=== PATIENT | male | born 2000 | race Caucasian/White ===

== ENCOUNTER 2022-03-19 00:57 | Emergency (ER) | payer BC, SELFPAY ==
[2022-03-19 01:02] VITALS: BP 127/81; PULSE 96; RESP 16; TEMP 36.6; O2SAT 100; BMI 29.6
[2022-03-19 01:20] VITALS: O2SAT 100
[2022-03-19] MEDS: ONDANSETRON 2 MG/ML inj 4 MG IVP (01:20)
[2022-03-19] MEDS: 0.9 % SODIUM CHLORIDE 1000 ml 1,000 ML IV (01:20)
[2022-03-19 01:28] LABS: Basophils Absolute Auto 0.03 K/uL (0.00-0.30); Basophils Percent Auto 0.3 % (0.0-3.0); Eosinophils Absolute Auto 0.19 K/uL (0.00-0.50); Eosinophils Percent Auto 1.9 % (0.0-7.0); Hematocrit 46.7 % (37.0-53.0); Hemoglobin* 15.9 gm/dL (13.5-17.5); Immature Granulocytes Abs Auto 0.01 K/uL (0.00-0.30); Immature Granulocytes Pct Auto 0.1 %; Lymphocytes Absolute Auto 3.32 K/uL (0.90-2.90); Mean Corpuscular HGB Conc 34 gm/dL (32-36); Mean Corpuscular Hemoglobin 30 pg (26-34); Mean Corpuscular Volume 88 fL (80-100); Monocytes Percent Auto 7.3 % (0.0-11.0); Neutrophils Percent Auto 56.4 % (42.0-72.0); Platelet Count* 282 K/uL (140-440); RDW Coefficient of Variation % 12.5 % (11.5-15.5); Red Blood Count 5.34 m/uL (4.30-5.90); White Blood Count* 9.76 K/uL (4.50-11.00)
[2022-03-19 01:32] LABS: Slide Review Reflex No
[2022-03-19 01:40] LABS: Chloride* 107 mmol/L (96-114)
[2022-03-19 01:41] LABS: Albumin* 4.8 g/dL (3.3-5.0); Sodium* 141 mmol/L (135-149)
[2022-03-19 01:42] LABS: Potassium* 3.4 mmol/L (3.6-5.1)
[2022-03-19 01:44] LABS: Alkaline Phosphatase* 112 U/L (40-150); Aspartate Amino Transferase* 21 U/L (12-35); Bilirubin Direct* 0.1 mg/dL (0.0-0.5); Bilirubin Total* 0.6 mg/dL (0.1-1.5); Blood Urea Nitrogen* 21 mg/dL (5-24); Calcium* 9.5 mg/dL (8.4-10.6); Carbon Dioxide* 20 mmol/L (20-32); Creatinine* 1.1 mg/dL (0.5-1.5); Est. Creatinine Clearance* 103.64; Estimated Glomerular Filt Rate 99 ml/min; Glucose* 152 mg/dL (60-115); Lipase* 103 U/L (23-300); Total Protein* 8.1 g/dL (6.0-8.3)
[2022-03-19 01:45] LABS: Alanine Aminotransferase* 21 U/L (4-50)
--- NOTE | 2022-03-19 01:49 | ED_ITS ---
HPI - General Adult General Time Seen by Provider: 01:49 Date Seen: 03/19/22 Chief complaint: Abdominal Pain Stated complaint: Abdominal pain Time Seen by Provider: 03/19/22 01:03 Source: patient, RN notes reviewed and old records reviewed Mode of arrival: ambulatory Limitations: no limitations History of Present Illness HPI narrative: 21-year-old male who presents today with ?severe abdominal pain? and nausea vomiting. Patient woke up about 12:30 a.m. with severe generalized abdominal pain and nausea. Threw up a little bit at home with no improvement. Came to the emergency department and on arrival here vomited more, says he feels better and pain is resolved now. No diarrhea. No cough, runny nose, chest pain, breathing difficulty, urinary symptoms. No known ill contacts. Denies fever or chills. Prior appendectomy. Denies smoking alcohol use, patient is a student at [employer]. Related Data Home Medications Medication Instructions Recorded Confirmed No Known Home Medications 03/19/22 03/19/22 Allergies Allergy/AdvReac Type Severity Reaction Status Date / Time No Known Drug Allergies Allergy Verified 03/19/22 01:05 [facility] Medical History (Updated 03/19/22 @ 02:09 by Ruel Chandler MD) No significant past medical history Surgical History History of appendectomy Social History Smoking Status: Never smoker Do you use any of these nicotine containing products: None How often do you have a drink containing alcohol: never AUDIT-C Alcohol total score: 0 Non-prescribed substance use: denies use Exam Narrative: Exam Narrative: General: Well-developed and well-nourished, no acute distress Head: Atraumatic and normocephalic Eyes: Pupils are equal reactive, extraocular motions intact, conjunctiva clear ENT: External nose and ears are normal, posterior pharynx without erythema or exudate Neck: No midline cervical tenderness, full spontaneous range of motion the neck, trachea midline, no adenopathy Heart: Regular rate and rhythm no murmurs or thrills Lungs: Clear to auscultation bilaterally without wheezes or crackles Abdomen: Soft, nontender, nondistended with active bowel sounds Musculoskeletal: No tenderness, deformity, or edema Neurologic: Awake, alert, and oriented x3, no gross focal neurologic deficits, cranial nerves intact as tested Psych: Mood and affect are appropriate Skin: No rashes Const: Vital Signs, click to edit/add: Vital Signs - 24 hr 03/19/22 01:02 03/19/22 01:20 03/19/22 02:01 Temperature 97.9 F 98.2 F Pulse Rate [Left P ulse Oximeter] 96 89 Respiratory Rate 16 16 Blood Pressure [Le ft Upper Arm] 127/81 122/78 Pulse Oximetry 100 100 100 Oxygen Delivery Me thod Room Air Room Air Course Course Hospital Course: Patient presents today with abdominal pain, nausea, vomiting. Prior appendectomy. On exam now, patient is pain-free after having emesis in the emergency department. No abdominal tenderness. Labs are ordered, in absence of abdominal tenderness intra-abdominal pathology including acute cholecystitis, pancreatitis, bowel obstruction unlikely. If labs are reassuring, patient be discharged with symptomatic treatment. Symptoms and presentation today are most consistent with enteritis or gastroenteritis, food-borne illness is also possible. Reevaluation(s) Reevaluation #1: Labs independently interpreted by me demonstrate normal white blood cell count with reassuring hemoglobin. Basic panel is reassuring other than mild hyperglycemia, lipase is in normal range and hepatic function panel is normal. Patient will be given Pepcid for possible residual gastritis and plan to discharge. Time: 01:51 Vital Signs Vital signs: Initial Vital Signs Temperature 97.9 F 03/19/22 01:02 Temperature Source Temporal Artery Scan 03/19/22 01:02 Pulse Rate 96 03/19/22 01:02 Pulse Rhythm 03/19/22 01:02 Respiratory Rate 16 03/19/22 01:02 Blood Pressure 127/81 03/19/22 01:02 Blood Pressure Mean 96 03/19/22 01:02 Blood Pressure Position Sitting 03/19/22 01:02 Pulse Oximetry 100 03/19/22 01:02 Oxygen Delivery Method 03/19/22 01:02 Vital Signs Temperature 97.9 F 03/19/22 01:02 Pulse Rate 96 03/19/22 01:02 Respiratory Rate 16 03/19/22 01:02 Blood Pressure 127/81 03/19/22 01:02 Pulse Oximetry 100 03/19/22 01:02 Oxygen Delivery Method 03/19/22 01:02 Temperature 98.2 F 03/19/22 02:01 Pulse Rate 89 03/19/22 02:01 Respiratory Rate 16 03/19/22 02:01 Blood Pressure 122/78 03/19/22 02:01 Pulse Oximetry 100 03/19/22 02:01 Oxygen Delivery Method 03/19/22 02:01 Medical Decision Making Lab Data Labs: Lab Results 03/19/22 03/19/22 Range/Units 01:20 01:20 WBC 9.76 (4.50-11.00) K/uL RBC 5.34 (4.30-5.90) m/uL Hgb 15.9 (13.5-17.5) gm/dL Hct 46.7 (37.0-53.0) % MCV 88 (80-100) fL MCH 30 (26-34) pg MCHC 34 (32-36) gm/dL RDW Coeff of Shayla 12.5 (11.5-15.5) % Plt Count 282 (140-440) K/uL Neut % (Auto) 56.4 (42.0-72.0) % Lymph % (Auto) 34.0 (20-44) % [place] % (Auto) 7.3 (0.0-11.0) % Eos % (Auto) 1.9 (0.0-7.0) % Baso % (Auto) 0.3 (0.0-3.0) % Neut # (Auto) 5.50 (1.7-7.0) K/uL Lymph # (Auto) 3.32 H (0.90-2.90) K/uL [place] # (Auto) 0.70 (0.00-0.90) K/UL Eos # (Auto) 0.19 (0.00-0.50) K/uL Baso # (Auto) 0.03 (0.00-0.30) K/uL Sodium 141 (135-149) mmol/L Potassium 3.4 L (3.6-5.1) mmol/L Chloride 107 (96-114) mmol/L Carbon Dioxide 20 (20-32) mmol/L BUN 21 (5-24) mg/dL Creatinine 1.1 (0.5-1.5) mg/dL Estimated Creat Clear 103.64 Estimated GFR 99 ml/min Glucose 152 H (60-115) mg/dL Calcium 9.5 (8.4-10.6) mg/dL Total Bilirubin 0.6 (0.1-1.5) mg/dL Direct Bilirubin 0.1 (0.0-0.5) mg/dL AST 21 (12-35) U/L ALT 21 (4-50) U/L Alkaline Phosphatase 112 (40-150) U/L Total Protein 8.1 (6.0-8.3) g/dL Albumin 4.8 (3.3-5.0) g/dL Lipase 103 (23-300) U/L Discharge Plan Discharge Clinical Impression: Gastroenteritis Patient Disposition: Home, Self-Care Condition: Stable Instructions: Acute Nausea and Vomiting (ED) Additional Instructions: Liquid diet for 24 hours. Avoid carbonated beverages, caffeine, alcohol. Symptoms should improve within 48 hours. If not feeling better in 2 days, follow-up with primary care. Activity Level: No Restrictions Discharge Diet: Full Liquid Prescriptions: No Action No Known Home Medications Stand Alone Forms: [facility] [facility] Info Instructions
[2022-03-19 02:01] VITALS: BP 122/78; PULSE 89; RESP 16; TEMP 36.8; O2SAT 100
[2022-03-19] MEDS: FAMOTIDINE 10 MG/ML inj 20 MG IVP (02:03)
[2022-03-19 02:23] VITALS: BP 122/78; PULSE 89; RESP 16; TEMP 36.8
== END 2022-03-19 02:24 | disposition home or self-care (01) ==
LOC: ED 02:14
PROVIDERS: Emergency Provider Family Medicine
DX: K52.9 Noninfective gastroenteritis and colitis, unspecified (principal)
CPT/HCPCS: 36415; 80048; 80076; 83690; 85025; 94761; 96374; 96375; 99283; 99284; J2405; J7030; S0028